=== PATIENT | female | born 2000 | race Caucasian/White ===

== ENCOUNTER 2020-12-15 13:24 | Emergency (ER) | payer OTHER ==
[~2020-12-15] VITALS: Ht 172.7 cm; Wt 60.3 kg
[2020-12-15 13:27] VITALS: BP 142/88
--- NOTE | 2020-12-15 13:57 | NUR ---
MONEY POSITION OFFICER: PT AMBULATORY TO ROOM WITH STEADY GAIT AT THIS TIME FROM LOBBY WITH REVIEW APPRAISER
== END 2020-12-15 14:56 | disposition home or self-care (01) ==
LOC: ED 14:00
DX: S63.522A Sprain of radiocarpal joint of left wrist, initial encounter (principal); W19.XXXA Unspecified fall, initial encounter; Y93.23 Activity, snow (alpine) (downhill) skiing, snowboarding, sledding, tobogganing and snow tubing; Y92.828 Other wilderness area as the place of occurrence of the external cause; Y99.8 Other external cause status
CPT/HCPCS: 29125; 99283